=== PATIENT | female | born 1970 | race Caucasian/White ===

== ENCOUNTER 2016-05-05 13:00 | Outpatient (RCR) ==
[2016-01-28 11:59] VITALS: BMI 39.9
--- NOTE | 2016-04-29 14:01 | RS.OPPTDN ---
Subjective Date of Note: 04/29/16 Visit #: 14 Date of Evaluation: 03/25/16 Payer Source: Medicaid Treatment Diagnosis: right knee pain, effusion, stiffness, s/p right TKA Current Subjective/complaints:: Reports having a good day today,minimal knee pain at this time. *Precautions: none Pain Assessment - Pain Description Pain Location: right knee Pain Description: Dull, Aching Current Pain Intensity: not rated today Interventions - Exercise/Activities/Manual Therapy Exercises/Activities: 45 mins. total of TKA protocol in supine and sitting, ended session with 3/15 reps. on leg press with 30#.AROM :flexion 120 extension 0. Total minutes of Exercise: 45 Manual Therapy: NA Total minutes of Manual Therapy: 0 HOME EXERCISE PROGRAM: QS, HS, SLR, hip abd, heel slides in supine and in sitting. Passive flexion and extension stretching. - Charges Total Direct Minutes: 45 Total Treatment Time: 45 Procedures billed for this date of service:: ex 3 Assessment: Patient reports no increased knee pain today with exercises,only fatigue.She has less edema,no warmth today.She has steadier gait ,with much better heel strike on the R. Patient Education: Education of Plan of Care Patient demonstrates compliance with HEP?: Yes Short Term Goals Goal #1: Left knee flexion to 95 degrees. Goal to be met by: 04/09/16 Progress towards Goal:: Met Goal #2: L knee to full extension. Progress towards Goal:: Met Goal #3: Right knee pain <6/10 at rest. Goal to be met by: 04/09/16 Progress towards Goal:: Progressing Goal #4: Pt to demonstrate good heelstrike and knee flexion with ambulation in dept. Goal to be met by: 04/09/16 Progress towards Goal:: Progressing Custodial Goals Goal #1: Pt able to continue HEP to maintain functional level at discharge. Goal to be met by: 05/10/16 Progress towards goal: Partially Met Goal #2: Score on LE functional scale improved to 50/80. Goal to be met by: 05/10/16 Progress towards goal: Progressing Goal #3: Patient to ambulate without Asst device household/community distances. Goal to be met by: 05/10/16 Progress towards goal: Met Goal #4: Patient able to perform all functional/work activities without difficulty. Goal to be met by: 05/10/16 Progress towards goal: Progressing Plan PLAN OF CARE EXPIRES ON:: 05/10/16 ORDER # VISITS AND/OR THROUGH DATE: 05/10/16 PLAN: Continue Plan of Care
--- NOTE | 2016-04-30 14:09 | RS.OPPTDN ---
Subjective Date of Note: 04/30/16 Visit #: 15 Date of Evaluation: 03/25/16 Payer Source: Medicaid Treatment Diagnosis: right knee pain, effusion, stiffness, s/p right TKA Current Subjective/complaints:: I had a blister over the top of my incision and I alcoholed the end of a needle and busted it. Some yellowish puss came out and something weird that looked like a hair. It feels a lot better now. *Precautions: none Pain Assessment - Pain Description Pain Location: right knee Pain Description: Dull, Aching Current Pain Intensity: not rated today Interventions - Exercise/Activities/Manual Therapy Exercises/Activities: 45 mins. total of TKA protocol in supine and sitting 07/11 with 5 lbs for SAQ, LAQ, HS. SLR caused increased right groin pain. Multiple trigger points and tender points were palpable in this area. She also performed 07/09 reps. on leg press with 45#. Manual Therapy: NA HOME EXERCISE PROGRAM: QS, HS, SLR, hip abd, heel slides in supine and in sitting. Passive flexion and extension stretching. - Charges Total Direct Minutes: 45 Total Treatment Time: 45 Procedures billed for this date of service:: ther ex X 3 Assessment: Patient tolerated tx well and has no increase in pain with increase in resistance. Patient demonstrates compliance with HEP?: Yes Short Term Goals Goal #1: Left knee flexion to 95 degrees. Goal to be met by: 04/09/16 Progress towards Goal:: Met Goal #2: L knee to full extension. Progress towards Goal:: Met Goal #3: Right knee pain <6/10 at rest. Goal to be met by: 04/09/16 Progress towards Goal:: Progressing Goal #4: Pt to demonstrate good heelstrike and knee flexion with ambulation in dept. Goal to be met by: 04/09/16 Progress towards Goal:: Progressing Licensing And Registration Director Goals Goal #1: Pt able to continue HEP to maintain functional level at discharge. Goal to be met by: 05/10/16 Progress towards goal: Partially Met Goal #2: Score on LE functional scale improved to 50/80. Goal to be met by: 05/10/16 Progress towards goal: Progressing Goal #3: Patient to ambulate without Asst device household/community distances. Goal to be met by: 05/10/16 Progress towards goal: Met Goal #4: Patient able to perform all functional/work activities without difficulty. Goal to be met by: 05/10/16 Progress towards goal: Progressing Plan PLAN OF CARE EXPIRES ON:: 05/10/16 ORDER # VISITS AND/OR THROUGH DATE: 05/10/16 PLAN: Continue Plan of Care
--- NOTE | 2016-05-02 14:05 | RS.OPPTDN ---
Subjective Date of Note: 05/02/16 Visit #: 16 Date of Evaluation: 03/25/16 Payer Source: Medicaid Treatment Diagnosis: right knee pain, effusion, stiffness, s/p right TKA Current Subjective/complaints:: Reports he rpain is elevated today ovwerall,not just the R knee.(Patient has RA.) *Precautions: none Pain Assessment - Pain Description Pain Location: right knee Pain Description: Dull, Aching Current Pain Intensity: 7/10 Other Comments regarding Pain:: less pain after heat and exercise - Heat/Cryotherapy Treatment: Hot Pack (20 mins. prior to exercises) Interventions - Exercise/Activities/Manual Therapy Exercises/Activities: 35 mins. total of TKA protocol in supine and sitting 07/11 with 3 lbs for SAQ, LAQ, HS. SLR without resitance today She also performed 3 reps. on leg press with 45#. Total minutes of Exercise: 35 Manual Therapy: NA Total minutes of Manual Therapy: 0 HOME EXERCISE PROGRAM: QS, HS, SLR, hip abd, heel slides in supine and in sitting. Passive flexion and extension stretching. - Charges Total Direct Minutes: 35 Total Treatment Time: 55 Procedures billed for this date of service:: hp,ex 2 Assessment: Patient continues to have improved firing of the quads,functional ROM with less intense pain at end ROM.She is highly motivated to improve , compliant to all recommendations of the therapy staff. Patient Education: Education of diagnosis, Body/Joint mechanics, Home Exercise Program, Home Safety, Activity Modification, Education of Plan of Care Patient demonstrates compliance with HEP?: Yes Short Term Goals Goal #1: Left knee flexion to 95 degrees. Goal to be met by: 04/09/16 Progress towards Goal:: Met Goal #2: L knee to full extension. Progress towards Goal:: Met Goal #3: Right knee pain <6/10 at rest. Goal to be met by: 04/09/16 Progress towards Goal:: Partially Met Goal #4: Pt to demonstrate good heelstrike and knee flexion with ambulation in dept. Goal to be met by: 04/09/16 Progress towards Goal:: Partially Met Prison Goals Goal #1: Pt able to continue HEP to maintain functional level at discharge. Goal to be met by: 05/10/16 Progress towards goal: Partially Met Goal #2: Score on LE functional scale improved to 50/80. Goal to be met by: 05/10/16 Progress towards goal: Progressing Goal #3: Patient to ambulate without Asst device household/community distances. Goal to be met by: 05/10/16 Progress towards goal: Met Goal #4: Patient able to perform all functional/work activities without difficulty. Goal to be met by: 05/10/16 Progress towards goal: Progressing Plan PLAN OF CARE EXPIRES ON:: 05/10/16 ORDER # VISITS AND/OR THROUGH DATE: 05/10/16 PLAN: Continue Plan of Care
--- NOTE | 2016-05-05 14:03 | RS.OPPTDN ---
Subjective Date of Note: 05/05/16 Visit #: 17 Date of Evaluation: 03/25/16 Payer Source: Medicaid Treatment Diagnosis: right knee pain, effusion, stiffness, s/p right TKA Current Subjective/complaints:: Reports the weather change is causing her knee to ache ,but it is tolerable. *Precautions: none Pain Assessment - Pain Description Pain Location: right knee Pain Description: Dull, Aching Current Pain Intensity: 4/10 - Heat/Cryotherapy Treatment: Cryotherapy (20 mins. prior to exercises) Interventions - Exercise/Activities/Manual Therapy Exercises/Activities: 40 mins. total of TKA protocol in supine and sitting 3/15 reps. with 4 lbs for SAQ, LAQ, HS. Ankle pumps with red theraband SLR without resitance today She also performed 3/15 reps. on leg press with 45#.Supine AROM is 117 flexion,0 extension. Total minutes of Exercise: 40 Manual Therapy: NA Total minutes of Manual Therapy: 0 HOME EXERCISE PROGRAM: QS, HS, SLR, hip abd, heel slides in supine and in sitting. Passive flexion and extension stretching. - Charges Total Direct Minutes: 40 Total Treatment Time: 60 Procedures billed for this date of service:: cp,ex 3 Assessment: Patient continues to have improved strength in quads,minimal decrease in flexion today due to minimal increase in edema,but no elevated warmth in the R knee.She has excellent understanding of HEP and joint protection. Patient Education: Education of diagnosis, Body/Joint mechanics, Home Exercise Program, Home Safety, Activity Modification, Education of Plan of Care Patient demonstrates compliance with HEP?: Yes Short Term Goals Goal #1: Left knee flexion to 95 degrees. Goal to be met by: 04/09/16 Progress towards Goal:: Met Goal #2: L knee to full extension. Progress towards Goal:: Met Goal #3: Right knee pain <6/10 at rest. Goal to be met by: 04/09/16 Progress towards Goal:: Met Goal #4: Pt to demonstrate good heelstrike and knee flexion with ambulation in dept. Goal to be met by: 04/09/16 Progress towards Goal:: Partially Met Shipping/Receiving Manager Goals Goal #1: Pt able to continue HEP to maintain functional level at discharge. Goal to be met by: 05/10/16 Progress towards goal: Partially Met Goal #2: Score on LE functional scale improved to 50/80. Goal to be met by: 05/10/16 Progress towards goal: Progressing Goal #3: Patient to ambulate without Asst device household/community distances. Goal to be met by: 05/10/16 Progress towards goal: Met Goal #4: Patient able to perform all functional/work activities without difficulty. Goal to be met by: 05/10/16 Progress towards goal: Progressing Plan PLAN OF CARE EXPIRES ON:: 05/10/16 ORDER # VISITS AND/OR THROUGH DATE: 05/10/16 PLAN: Continue Plan of Care
--- NOTE | 2016-05-07 11:52 | RS.QUICKDC ---
Discharge from PT Date of Discharge: 10/22/12 Number of Visits: 17 Reason for Discharge: Patient called and cancelled due to flare up of RA pain.She returns to work this week, was to be her last PT session.She is pleased with her progress,has good understanding of her HEP ,joint protection.
== END 2016-05-27 ==
DX: M06.861 Other specified rheumatoid arthritis, right knee (principal); Z96.651 Presence of right artificial knee joint

== ENCOUNTER 2016-08-06 13:27 | Emergency (ER) ==
[2016-08-06 13:38] VITALS: BP 186/113; TEMP 96.7; BMI 37.8
[2016-08-06] MEDS ORDERED: ASPIRIN CHEWABLE PO STA (13:45)
[2016-08-06] MEDS ORDERED: NITROSTAT SL PRN (13:45)
--- NOTE | 2016-08-06 13:46 | ED.PDOC ---
General ED Provider: Dr. RORO CAR JR Chief Complaint: Chest Pain Stated Complaint: CHEST DISCOMFORT, ELEVATED B/P AND HEADACHE for 3 dasy noted excessive blood pressure at work many years of lisiinopril[End]96.7 86 16 99% 186.113 12/04. note has had 25 pound weight loss withminimal effort- expressed concern to PMD no bruising abdominal pain focal signs- recc follow up with PMD Time Seen by Physician: 13:44 Mode of Arrival: Walk-In Information Source: Patient Exam Limitations: No limitations Primary Care Provider: DOMINGO NICHOLS Nursing and Triage Documentation Reviewed and Agree: No Review of Systems - Review Of Systems Constitutional: Reports: Malaise Eyes: Reports: No symptoms Respiratory: Reports: No symptoms Cardiac: Reports: Chest pain GI: Reports: No symptoms : Reports: No symptoms Musculoskeletal: Reports: Joint pain, Muscle pain Skin: Reports: No symptoms Neurological: Reports: No symptoms Endocrine: Reports: No symptoms Hematologic/Lymphatic: Reports: No symptoms All Other Systems: Other Past Medical History - Past Medical History Previously Healthy: No (R.A.) Endocrine: Reports: None Cardiovascular: Reports: Hypertension Respiratory: Reports: None Hematological: Reports: Anemia Gastrointestinal: Reports: GERD Genitourinary: Reports: Kidney stones Neuro/Psych: Reports: None Musculoskeletal: Reports: Arthritis (RA) Cancer: Reports: None Last Menstrual Period: NOW Other Pertinent Past Medical History: RA - Surgical History General Surgical History: Reports: Tubal ligation, , Cholecystectomy, Tonsillectomy, Adenoidectomy, Orthopedic ( LEFT KNEE REPLACED, RIGHT KNEE REPLACED) - Family History Family History: Reports: Unknown - Social History Smoking Status: Never smoker Hx Substance Use: No Alcohol Screening: None Physical Exam - Physical Exam Appearance: Well-appearing, Obese Interpretation - Radiology Interpretation Radiology Interpretation By: Radiologist Radiology Results: No acute changes Exam Interpreted: CXR - EKG Interpretation Time of EKG #1: 14:00 Rate: Normal Rhythm: Sinus Ectopy: None Jack: NL ST Segment: Normal Re-Evaluation - Re-Evaluation Time of Re-Evaluation: 14:31 (pain and tenderness left ant chest and scapula pleuritic in character) Status: Improved Critical Care Note - Critical Care Note Total Time (mins): 20 Course - Course Hematology/Chemistry: 08/06/16 14:00 08/06/16 14:00 Orders, Labs, Meds: Lab Review 08/06/16 14:00 WBC 8.71 RBC 4.35 Hgb 10.4 L Hct 32.3 L MCV 74.3 L MCH 23.9 L MCHC 32.2 RDW Coeff of Satish 19.1 H Plt Count 363 Immature Gran % (Auto) 0.3 Neut % (Auto) 60.3 Lymph % (Auto) 30.0 Tate % (Auto) 6.3 Eos % (Auto) 2.6 Baso % (Auto) 0.5 Immature Gran # (Auto) 0.0 Neut # 5.3 Lymph # 2.6 Tate # 0.6 Eos # 0.2 Baso # 0.0 Sodium 138 Potassium 3.7 Chloride 104 Carbon Dioxide 24 Anion Gap 13.7 BUN 13 Creatinine 0.66 Estimated GFR (MDRD) 97.00 BUN/Creatinine Ratio 19.69 Glucose 97 Calcium 9.5 Total Bilirubin 0.27 AST 14 L ALT 15 Alkaline Phosphatase 101 H Total Creatine Kinase 45 Troponin I < 0.0100 B-Natriuretic Peptide 74 Total Protein 7.6 Albumin 3.8 Globulin 3.8 Albumin/Globulin Ratio 1.00 Orders Category Date Time Status EKG-(ED ONLY) Stat CARDIO 08/06/16 13:45 Completed ED TEACHER ADVISOR APPLIED .ONCE EMERGENCY 08/06/16 13:45 Active ED IV/MEDIPORT/POWERPORT .ONCE EMERGENCY 08/06/16 13:45 Active B-TYPE NATRIURETIC PEPTIDE Stat LAB 08/06/16 14:00 Completed CBC W/ AUTO DIFF Stat LAB 08/06/16 14:00 Completed COMPREHENSIVE METABOLIC PANEL Stat LAB 08/06/16 14:00 Completed CREATINE KINASE Stat LAB 08/06/16 14:00 Completed TROPONIN I Stat LAB 08/06/16 14:00 Completed 0.9 % Sodium Chloride [Saline Flush] MEDS 08/06/16 13:45 Active 1 syr IVF PRN PRN Aspirin [Aspirin Chewable] MEDS 08/06/16 13:45 Discontinued 324 mg PO ONCE STA Lisinopril [Zestril] MEDS 08/06/16 14:44 Discontinued 20 mg PO ONCE STA Nitroglycerin [Nitrostat] MEDS 08/06/16 13:45 Active 0.4 mg SL Q5MIN X 3 DOSES PRN CHEST, 1V AP ONLY Stat RADS 08/06/16 13:45 Completed Medications Generic Name Dose Route Start Last Admin Trade Name Freq PRN Reason Stop Dose Admin Nitroglycerin 0.4 mg 08/06/16 13:45 Nitrostat SL Q5MIN X 3 DOSES PRN Chest Pain Sodium Chloride 1 syr 08/06/16 13:45 08/06/16 14:26 Saline Flush IVF 1 syr PRN PRN Administration To flush IV Discontinued Medications Generic Name Dose Route Start Last Admin Trade Name Freq PRN Reason Stop Dose Admin Aspirin 324 mg 08/06/16 13:45 08/06/16 14:25 Aspirin Chewable PO 08/06/16 13:46 324 mg ONCE STA Administration Lisinopril 20 mg 08/06/16 14:44 08/06/16 14:56 Zestril PO 08/06/16 14:45 20 mg ONCE STA Administration Vital Signs: Temp Pulse Resp BP Pulse Ox 08/06/16 13:33 96.7 F L 86 16 186/113 H 99 TAWANNA Risk Score TAWANNA Risk Score: Risk Score Odds of by 30D 0 0.1 (0.1-0.2) 1 0.3 (0.2-0.3) 2 0.4 (0.3-0.5) 3 0.7 (0.6-0.9) 4 1.2 (1.0-1.5) 5 2.2 (1.9-2.6) 6 3.0 (2.5-3.6) 7 4.8 (3.8-6.1) Departure - Departure Time of Disposition: 14:38 Disposition: HOME SELF-CARE Discharge Problem: Chest pain Instructions: Chest Wall Pain (ED) Condition: Good Pt referred to PMD for follow-up: Yes Additional Instructions: increase lisinopril to 20 mg daily check blood pressure daily and record follow up pmd 1-2 weeks sooner if not resolved discuss weight loss with PMD discuss use of aspirin for pain with strap buckler machine may use ultram for chest wall pain not controlled with NSAIDS Prescriptions: Lisinopril 20 mg PO DAILY #30 tablet Allergies/Adverse Reactions: Allergies hydroxychloroquine sulfate [From Plaquenil] Adverse Reaction (Verified 08/06/16 13:28) Home Medications: Ambulatory Orders Folic Acid 0.4 mg PO DAILY 01/10/15 Ibuprofen 800 mg PO BID 01/10/15 Lisinopril 10 mg PO DAILY 01/10/15 Pantoprazole Sodium [Protonix] 40 mg PO DAILY #30 tablet. 09/19/15 Tramadol HCl [Ultram] 50 mg PO Q6H PRN #14 tablet 01/28/16 Adalimumab [Humira] 40 mg SQ WEEKLY 08/06/16 Lisinopril 20 mg PO DAILY #30 tablet 08/06/16 Methotrexate Sodium/Pf [Methotrexate 1 Gram/40 ml Vial] 1 ml IJ WEEKLY 08/06/16
[2016-08-06] MEDS ORDERED: VASOTEC IV IVP STA (13:57)
[2016-08-06 14:08] LABS: BASOPHILS % (AUTO) 0.5 % (0.0-3.0); EOSINOPHILS # (AUTO) 0.2 K/ul (0.0-0.7); EOSINOPHILS % (AUTO) 2.6 % (0.0-7.0); HEMATOCRIT 32.3 % (37.0-47.0); HEMOGLOBIN 10.4 g/dl (12.0-16.0); IMMATURE GRANULOCYTE % (AUTO) 0.3 % (0.0-5.0); LYMPHOCYTES # (AUTO) 2.6 K/uL (0.60-3.4); MEAN CORPUSCULAR HEMOGLOBIN 23.9 pg (27.0-31.0); MEAN CORPUSCULAR HGB CONC 32.2 (31.8-35.4); MEAN CORPUSCULAR VOLUME 74.3 fl (81.0-99.0); MONOCYTES # (AUTO) 0.6 K/uL (0.4-2.0); MONOCYTES % (AUTO) 6.3 (0-10); NEUTROPHILS # (AUTO) 5.3 K/ul (2.0-6.9); NEUTROPHILS % (AUTO) 60.3; PLATELET COUNT 363 10^3/uL (140-440); RED BLOOD COUNT 4.35 10^6/ul (4.20-5.40); WHITE BLOOD COUNT 8.71 K/ul (4.6-10.2)
--- NOTE | 2016-08-06 14:13 | DI ---
EXAM: Single view of the chest. History: Chest pain. Comparison: Chest radiograph 09/20/2015 Findings: Heart size is normal. No focal consolidation. No appreciable pleural fluid and no pneum othorax. No acute osseous abnormalities. Impression: No acute cardiopulmonary process.
[2016-08-06 14:31] LABS: ALANINE AMINOTRANSFERASE 15 U/L (12-78); ALBUMIN 3.8 g/dL (3.4-5.0); ALKALINE PHOSPHATASE 101 U/L (42-98); ANION GAP 13.7; ASPARTATE AMINO TRANSFERASE 14 U/L (15-37); BILIRUBIN,TOTAL 0.27 mg/dL (0.00-1.20); BLOOD UREA NITROGEN 13 mg/dL (7-18); BUN/CREATININE RATIO 19.69; CALCIUM 9.5 mg/dL (8.2-10.2); CARBON DIOXIDE 24 mmol/L (21-32); CHLORIDE 104 mmol/L (98-107); CREATINE KINASE 45 U/L; CREATININE 0.66 mg/dL (0.60-1.30); GLUCOSE 97 mg/dL (70-110); POTASSIUM 3.7 mmol/L (3.5-5.10); SODIUM 138 mmol/L (136-145); TOTAL PROTEIN 7.6 g/dL (6.4-8.2)
[2016-08-06] MEDS ORDERED: ZESTRIL PO STA (14:44)
== END 2016-08-06 15:22 | disposition home or self-care (01) ==
LOC: ED 13:27
DX: R07.89 Other chest pain (principal); I10 Essential (primary) hypertension; R63.4 Abnormal weight loss; Z79.899 Other long term (current) drug therapy
CPT/HCPCS: 36415; 80053; 82550; 83880; 84484; 85025; 93005; 93010; 99283

== ENCOUNTER 2017-10-13 15:31 | Emergency (ER) ==
[2017-10-13 15:35] VITALS: BP 146/93; TEMP 97.4; BMI 33.3
--- NOTE | 2017-10-13 18:32 | ED.PDOC ---
General ED Provider: Dr. SHERITA MARIE Chief Complaint: Foot Pain/Injury Stated Complaint: Rt Foot and ankle pain. Twisted her ankle last week when stepping on an object on her walkway. Pain persisted and area edematous. Hx RA Time Seen by Physician: 18:15 Mode of Arrival: Walk-In Information Source: Patient Exam Limitations: No limitations Primary Care Provider: DOMINGO NICHOLS Nursing and Triage Documentation Reviewed and Agree: Yes Reviewed sepsis parameters & appropriate labs ordered?: Yes System Inflammatory Response Syndrome: Not Applicable Sepsis Protocol: For patient's 13 years and over: Temp is 96.8 and below OR 101 and greater Pulse >90 BPM Resp >20/minute Acutely Altered Mental Status Are patient's symptoms suggestive of a new infection, such as: -Pneumonia -Skin, Soft Tissue -Endocarditis -UTI -Bone, Joint Infection -Implantable Device -Acute Abdominal Infection -Wound Infection -Meningitis -Blood Stream Catheter Infection -Unknown Musculoskeletal Complaint Exam - Ankle/Foot Complaint/Exam Location of Injury: Reports: Right, Ankle, Foot Mechanism of Injury: Reports: Trauma Onset/Duration: 1 week Symptoms Are: Reports: Still present Onset of Pain: Reports: Immediate Initial Severity: Moderate Current Severity: Moderate Location: Reports: Discrete, Radiating Character: Reports: Sharp, Aching Alleviating: Reports: Rest Aggravating: Reports: Movement, Weight bearing Able to Bear Weight: Yes Associated Signs and Symptoms: Reports: Swelling Related History: Denies: Similar episode, Occupational injury Gout Risk Factors: Reports: None Related Surgical History: Reports: None Lower Extremity Findings: Present: Swelling Achilles Tendon Abnormality: No Tenderness: Present: Lateral malleolus, Midfoot, Metatarsals (5th Base 5th MT) Differential Diagnosis: Closed Fracture, Sprain Review of Systems - Review Of Systems Constitutional: Reports: No symptoms Eyes: Reports: No symptoms Ears, Nose, Mouth, Throat: Reports: No symptoms Respiratory: Reports: No symptoms Cardiac: Reports: No symptoms GI: Reports: No symptoms : Reports: No symptoms Musculoskeletal: Reports: No symptoms, Back pain, Joint pain, Joint swelling, Muscle pain, Muscle stiffness Skin: Reports: No symptoms Neurological: Reports: No symptoms Endocrine: Reports: No symptoms Hematologic/Lymphatic: Reports: No symptoms All Other Systems: Reviewed and Negative Past Medical History - Past Medical History Previously Healthy: No (R.A.) Endocrine: Reports: None Cardiovascular: Reports: Hypertension Respiratory: Reports: None Hematological: Reports: Anemia Gastrointestinal: Reports: GERD Genitourinary: Reports: Kidney stones Neuro/Psych: Reports: None Musculoskeletal: Reports: Arthritis (RA) Cancer: Reports: None Last Menstrual Period: 1 week ago Other Pertinent Past Medical History: RA - Surgical History General Surgical History: Reports: Tubal ligation, , Cholecystectomy, Tonsillectomy, Adenoidectomy, Orthopedic ( LEFT KNEE REPLACED, RIGHT KNEE REPLACED) - Family History Family History: Reports: Unknown - Social History Smoking Status: Never smoker Hx Substance Use: No Alcohol Screening: None Physical Exam - Physical Exam Appearance: Well-appearing Pain Distress: Mild Eyes: YOGESH, EOMI, Conjunctiva clear ENT: Ears normal, Nose normal, Oropharynx normal Respiratory: Airway patent, Breath sounds clear, Breath sounds equal, Respirations nonlabored Cardiovascular: RRR, Pulses normal, No rub, No murmur GI/: Soft, Nontender, No masses, Bowel sounds normal, No Organomegaly Musculoskeletal: Limited ROM, Edema (rt lat ankle) Skin: Warm Neurological: Sensation intact, Motor intact, Reflexes intact, Alert, Oriented Psychiatric: Affect appropriate Critical Care Note - Critical Care Note Total Time (mins): 0 Course - Course Orders, Labs, Meds: Orders Category Date Time Status ANKLE, RIGHT MIN 3 VIEWS Stat RADS 10/13/17 18:30 Completed FOOT, RIGHT 3 VIEWS Stat RADS 10/13/17 18:30 Completed Vital Signs: Temp Pulse Resp BP Pulse Ox 10/13/17 15:31 97.4 F L 86 20 146/93 H 98 Departure - Departure Time of Disposition: 19:00 Disposition: HOME SELF-CARE Discharge Problem: Ankle sprain Instructions: Ankle Sprain (ED) Condition: Good Pt referred to PMD for follow-up: Yes (prn) IPMP verified?: No Additional Instructions: Ice for swelling Warm moist heat to reduce inflamatiion advil 200 mg 2-3 4 times daily for relief of pain Crutches to minimize weight bearing ambulation until swelling and pain eased up Allergies/Adverse Reactions: Allergies hydroxychloroquine sulfate [From Plaquenil] Adverse Reaction (Verified 10/13/17 15:35) Home Medications: Ambulatory Orders Folic Acid 0.4 mg PO DAILY 01/10/15 Ibuprofen 800 mg PO BID 01/10/15 Lisinopril 20 mg PO DAILY #30 tablet 08/06/16 Methotrexate Sodium/Pf [Methotrexate 1 Gram/40 ml Vial] 1 ml IJ WEEKLY 08/06/16 Omeprazole 20 mg PO DAILY 10/13/17 Tofacitinib Citrate [Xeljanz Xr] 11 mg PO DAILY 10/13/17 Tramadol HCl [Ultram] 50 mg PO TID PRN 10/13/17
--- NOTE | 2017-10-13 18:58 | DI ---
EXAM: Right ankle; AP, lateral, and oblique views HISTORY: Right ankle trauma FINDINGS: The soft tissues are diffusely edematous. The ankle joint spaces are maintained. No fract ure or subluxation is appreciated. Small plantar and retrocalcaneal enthesiophytes are noted. OPINION: No fracture or subluxation. Diffuse soft tissue edema.
--- NOTE | 2017-10-13 19:00 | DI ---
EXAM: Right foot; PA, lateral, and oblique views HISTORY: Right foot trauma, twisting injury FINDINGS: Plantar and right calcaneal enthesophytes are noted. The bones are osteopenic. There is m ild osteoarthritis within the forefoot diffusely. No fracture or subluxation are detected. OPINION: No fracture or subluxation. Osteopenia. Mild osteoarthritis in the forefoot.
== END 2017-10-13 19:11 | disposition home or self-care (01) ==
LOC: ED 15:31
DX: S93.401A Sprain of unspecified ligament of right ankle, initial encounter (principal); X50.1XXA Overexertion from prolonged static or awkward postures, initial encounter
CPT/HCPCS: 99283